=== PATIENT | male | born 1980 | race Caucasian/White ===

== ENCOUNTER 2017-01-20 19:30 | Emergency (ER) | payer BC ==
[2017-01-20 19:48] VITALS: TEMP 99.3
--- NOTE | 2017-01-20 20:05 | ED ---
Lower Extremity Injury HPI - General Chief Complaint: Extremity Injury, Lower Stated Complaint: Ankle Injury Time Seen by Provider: 01/20/17 19:49 Source: patient, RN notes reviewed, old records reviewed Mode of arrival: wheelchair Limitations: no limitations - History of Present Illness Initial Comments: 37-year-old female presents emergency Department with chief complaint of left ankle pain. Patient reports he stepped off his tractor and rolled his ankle in a hole. Patient states that since then he has not been able to bear any weight over his foot and ankle. Patient states that he broke his left femur before. Denies any other previous leg injuries. Denies any other injuries related to this fall. Patient reports he has normal sensation to the foot and ankle. States that the pain is family over the lateral malleolus. - Related Data Previous Rx's Medication Instructions Recorded Acetaminophen-Codeine 300-30mg 1 tab PO Q6H PRN #15 tablet 01/20/17 [Tylenol #3] Ibuprofen [Motrin] 600 mg PO Q8HR PRN #20 tab 01/20/17 Allergies Allergy/AdvReac Type Severity Reaction Status Date / Time No Known Allergies Allergy Verified 01/20/17 20:09 Review of Systems ROS Statement: Those systems with pertinent positive or pertinent negative responses have been documented in the HPI. ROS Other: All systems not noted in ROS Statement are negative. Past Medical History Past Medical History: No Reported History History of Any Multi-Drug Resistant Organisms: None Reported Additional Past Surgical History / Comment(s): left femer Past Psychological History: No Psychological Hx Reported Smoking Status: Never smoker Past Alcohol Use History: None Reported Past Drug Use History: None Reported General Exam - General Exam Comments Initial Comments: 37-year-old male. Patient does not appear to be in any acute distress. Limitations: no limitations General appearance: alert, in no apparent distress Head exam: Present: atraumatic, normocephalic, normal inspection Eye exam: Present: normal appearance, PERRL, EOMI. Absent: scleral icterus, conjunctival injection, periorbital swelling ENT exam: Present: normal exam, mucous membranes moist Neck exam: Present: normal inspection. Absent: tenderness, meningismus, lymphadenopathy Respiratory exam: Present: normal lung sounds bilaterally. Absent: respiratory distress, wheezes, rales, rhonchi, stridor Cardiovascular Exam: Present: regular rate, normal rhythm, normal heart sounds. Absent: systolic murmur, diastolic murmur, rubs, gallop, clicks GI/Abdominal exam: Present: soft, normal bowel sounds. Absent: distended, tenderness, guarding, rebound, rigid Extremities exam: Present: normal inspection, full ROM, normal capillary refill. Absent: tenderness, pedal edema, joint swelling, calf tenderness Left Knee exam: Present: normal inspection, full ROM Lower Leg exam: Present: normal inspection, full ROM Ankle exam: Present: tenderness, swelling (Over lateral malleolus). Absent: normal inspection Foot/Toe exam: Present: normal inspection, full ROM Neurovascular tendon exam: Present: no vascular compromise Back exam: Present: normal inspection Neurological exam: Present: alert, oriented X3, CN II-XII intact Psychiatric exam: Present: normal affect, normal mood Skin exam: Present: warm, dry, intact, normal color. Absent: rash Course Vital Signs 01/20/17 19:44 Temperature 99.3 F Pulse Rate 74 Respiratory 18 Rate Blood Pressure 125/67 O2 Sat by Pulse 100 Oximetry Procedures - Orthopedic Splinting/Casting Injury #1 Side: left Lower Extremity Injury Location: ankle Lower Extremity Immobilizer: posterior splint Other Orthopedic Equipment: crutches Additional Comments: Is neurovascularly intact. Medical Decision Making - Medical Decision Making 37-year-old male presents emergency Department with left ankle pain and swelling after he rolled it off his tractor. X-ray was reviewed and shows evidence of a distal fibular fracture. Patientplaced in a posterior splint. Patient be discharged with a temperature medication and pain medication and prescription for crutches. Patient also given orthopedic follow-up. Patient does have some swelling over the lateral aspect of the foot and ankle. He does have normal sensation distally. - Radiology Data Radiology results: report reviewed Nondisplaced fracture of the lateral malleolus. Soft tissue swelling noted. Left foot exam is an for any acute process. Disposition Clinical Impression: Left fibular fracture Disposition: HOME SELF-CARE Condition: Good Instructions: Ankle Fracture (ED) Additional Instructions: Patient advised to remain in the splint until seen by orthopedic physician. Ambulate with crutches. Follow-up with primary care provider. Return to the emergency department if any alarming signs or symptoms occur. Prescriptions: Acetaminophen-Codeine 300-30mg [Tylenol #3] 1 tab PO Q6H PRN #15 tablet PRN Reason: Pain Ibuprofen [Motrin] 600 mg PO Q8HR PRN #20 tab PRN Reason: Pain Referrals: None,Stated [Primary Care Provider] - 1-2 days Joshua Floyd DO [Doctor of Osteopathic Medicine] - 1-2 days Time of Disposition: 20:25
[2017-01-20] MEDS ORDERED: ACET/COD 300 MG/30 MG STARTER PACK 6 TAB BTL PO STA (20:20)
[2017-01-20] MEDS ORDERED: IBUPROFEN 600 MG STARTER PACK 4 TAB BTL PO STA (20:20)
--- NOTE | 2017-01-20 20:22 | XR ---
EXAMINATION TYPE: XR ankle complete LT DATE OF EXAM: 01/20/2017 COMPARISON: NONE HISTORY: Injury and pain TECHNIQUE: 2 views FINDINGS: There is a transverse fracture of the distal fibula. There is lateral soft tissue swelling. Ankle mortise is not widened. Talus is intact. IMPRESSION: Nondisplaced fracture of the lateral malleolus. Soft tissue swelling.
--- NOTE | 2017-01-20 20:24 | XR ---
EXAMINATION TYPE: XR foot limited LT DATE OF EXAM: 01/20/2017 COMPARISON: NONE HISTORY: Injury and pain TECHNIQUE: 2 views FINDINGS: Metatarsals are intact. I see no fracture nor dislocation. Joint spaces are normal. IMPRESSION: Negative left foot exam.
[2017-01-20 20:53] VITALS: BP 117/56; PULSE 78; RESP 16
== END 2017-01-20 20:52 | disposition home or self-care (01) ==
LOC: EC 19:30
DX: S82.65XA Nondisplaced fracture of lateral malleolus of left fibula, initial encounter for closed fracture (principal); W22.8XXA Striking against or struck by other objects, initial encounter
CPT/HCPCS: 99284

== ENCOUNTER → 2017-01-26 | Outpatient (CLI) | payer BC ==
--- NOTE | 2017-01-26 08:26 | CT ---
EXAMINATION TYPE: CT ankle LT wo con DATE OF EXAM: 01/26/2017 COMPARISON: Left ankle and foot x-rays January 20, 2017. HISTORY: Ankle pain CT DLP: 224.90 mGycm Automated exposure control for dose reduction was used. CT scan of left ankle is performed without co ntrast. Three-D reformatted images of the osseous structures are created on a independent workstation and reviewed. FINDINGS: There is redemonstration of acute minimally displaced intra-articular transverse fracture through the lateral malleolus. There is a 3 x 1 mm tiny ossific fragment along the medial aspect of fracture see n best on coronal image 56. In the medial malleolus there is more faint lucent line seen coronal imag e 54 and sagittal image 51, I favor prominent nutrient vessel, acute nondisplaced fracture felt much less likely but not excluded. The posterior malleolus is intact. Ankle mortise symmetry is preserved. There is moderate diffuse subcutaneous edema seen over posterior medial and lateral aspects. Talus and calcaneus are intact. Hindfoot and midfoot articulations are maintained. Visualized portion of the peroneal tendons are intact. Normal sinus tarsi fat is seen. Distal Achilles tendon is intact and felt unremarkable. Plantar fascia is grossly intact. IMPRESSION: REDEMONSTRATION OF ACUTE TRANSVERSE MINIMALLY DISPLACED FRACTURE OF THE LATERAL MALLEOLUS BELOW LEVEL OF TALAR DOME (GRIFFITHS A TYPE FRACTURE). NO DEFINITIVE ACUTE FRACTURE OF MEDIAL MALLEOLUS NOTED DET SOPHIE ABOVE.
== END | disposition home or self-care (01) ==
LOC: RADCTMAIN 07:20
PROVIDERS: ATTEND Orthopaedic Surgery
DX: S82.62XA Displaced fracture of lateral malleolus of left fibula, initial encounter for closed fracture (principal)